=== PATIENT | female | born 1960 | race Caucasian/White ===

== ENCOUNTER 2020-04-24 08:21 | Outpatient (CLI) | payer OTHER | END 2020-04-24 08:33 | disposition home or self-care (01) | LOC: MAMO-SONO 08:21 | PROVIDERS: ATTEND Student in an Organized Health Care Education/Training Program | DX: R92.0 Mammographic microcalcification found on diagnostic imaging of breast (principal); Q33.0 Congenital cystic lung; R05 Cough; N60.11 Diffuse cystic mastopathy of right breast; N60.12 Diffuse cystic mastopathy of left breast ==